=== PATIENT | male | born 1970 | race Caucasian/White ===

== ENCOUNTER 2016-12-07 21:26 | Emergency (ER) | payer BC ==
[~2016-12-07] VITALS: Ht 170.2 cm; Wt 79.1 kg
[2016-12-07 21:29] VITALS: Ht 170.2 cm; Wt 79.1 kg
[2016-12-07] MEDS ORDERED: IPRATROPIUM (NEB) 0.5 MG/2.5 ML AMP INH STA (21:41)
[2016-12-07] MEDS ORDERED: FAMOTIDINE 20 MG TAB PO STA (21:41)
[2016-12-07] MEDS ORDERED: DIPHENHYDRAMINE 50 MG INJ IV STA (21:41)
[2016-12-07] MEDS ORDERED: EPINEPHrine 1 MG INJ IM STA (21:41)
[2016-12-07] MEDS ORDERED: METHYLPREDNISOLONE 125 MG INJ IV STA (21:41)
[2016-12-07] MEDS ORDERED: ALBUTEROL 0.083% (NEB) 2.5 MG/3 ML AMP INH STA (21:41)
[2016-12-07] MEDS ORDERED: SOD CHLORIDE 0.9% 1,000 ML IV ONE (22:00)
--- NOTE | 2016-12-07 22:33 | RADRPT ---
PROCEDURE: XR Chest. CLINICAL INDICATION: Anaphylactic reaction. TECHNIQUE: Single frontal view of the chest. COMPARISON: None. FINDINGS: The cardiomediastinal silhouette is within normal limits. The lungs are clear. No signs of pleural f luid or pneumothorax are seen. The osseous structures and soft tissues are unremarkable. IMPRESSION: No evidence for active cardiopulmonary disease. RPTAT: [facility] Physician Kristin Date Time Electronically viewed and signed by Angelina Guadarrama Physician on 12/07/2016 22:32 RS/
--- NOTE | 2016-12-07 23:47 | ERA ---
ER Documentation Chief Complaint Date/Time DATE: 12/07/16 TIME: 23:38 Chief Complaint ate shrimp & is having SOB [facility] now HPI This is a 46-year-old male with no significant past medical history but a family history of anaphylaxis related to shellfish in his brother who is presenting with concerns of an anaphylactic reaction today. The patient was eating shrimp this evening when he suddenly developed wheezing, feeling that he cannot breathe and shortness of breath with feeling that his throat was closing on him. He felt like his lips were swelling as well. He did not develop a rash. ROS All systems reviewed and are negative except as per history of present illness. Allergies Allergies: Coded Allergies: No Known Allergy (Unverified , 12/07/16) PMhx/Soc Medical and Surgical Hx: pt denies Medical Hx, pt denies Surgical Hx Smoking Status: Never smoker Physical Exam Vitals Vital Signs Date Time Temp Pulse Resp B/P Pulse Ox O2 Delivery O2 Flow Rate FiO2 12/07/16 23:00 99.0 91 18 123/75 99 Room Air 12/07/16 21:55 Rebreather 12/07/16 21:45 76 20 100 Non Rebreather Mask 15.0 100 12/07/16 21:29 99.0 88 24 180/92 90 Physical Exam Const: Mild distress Head: Atraumatic Eyes: Normal Conjunctiva ENT: Normal External Ears, Nose and Mouth, oral airway patent. Oropharynx without erythema or edema or asymmetry. Neck: Full range of motion. ~ No meningismus. Resp: Clear to auscultation bilaterally, but decreased breath sounds symmetrically, no wheezing, rhonchi or rales Cardio: Regular rate and rhythm, no murmurs Abd: Soft, non tender, non distended. Normal bowel sounds Skin: No petechiae or rashes Back: No midline or flank tenderness Ext: No cyanosis, or edema Neur: Awake and alert, strength and sensation intact Psych: Normal Mood and Affect Results 24 hrs Current Medications Medications (Trade) Dose Ordered Sig/Felix Route PRN Reason Start Time Stop Time Status Last Admin Dose Admin Diphenhydramine HCl (Benadryl) 50 mg ONCE STAT IV 12/07/16 21:41 12/07/16 21:44 DC 12/07/16 21:57 Epinephrine (EPINEPHrine) 0.3 mg ONCE STAT IM 12/07/16 21:41 12/07/16 21:44 DC 12/07/16 21:51 Famotidine (Pepcid) 20 mg ONCE STAT PO 12/07/16 21:41 12/07/16 21:44 DC 12/07/16 21:54 Methylprednisolone Sodium Succinate (Solu-Medrol) 125 mg ONCE STAT IV 12/07/16 21:41 12/07/16 21:44 DC 12/07/16 21:57 Albuterol (Proventil 0.083% (Neb)) 5 mg ONCE STAT INH 12/07/16 21:41 12/07/16 21:44 DC 12/07/16 22:00 Ipratropium [place] 1.5 mg 1.5 mg ONCE STAT INH 12/07/16 21:41 12/07/16 21:44 DC 12/07/16 21:59 Sodium Chloride (NS) 1,000 ml @ 1,000 mls/hr Q1H ONCE IV 12/07/16 22:00 12/07/16 22:59 DC 12/07/16 22:03 Procedures/MDM The patient presents with concerns of acute anaphylaxis. The patient was started on Zanaflex protocol. He was given 0.3 mg of 1-1000 IM epinephrine. He was given 50 mg of Benadryl IV, 20 mg of Pepcid IV, 125 mg of Solu-Medrol IV and 1 L of IV fluids. He was also given nebulized treatments of albuterol and ipratropium. The patient's symptoms quickly resolved. He was monitored in the emergency department for 2 hours without recurrence of his symptoms. Shared decision making was made to discuss whether or not he should be admitted. He felt very well and remains so even after being taken off nebulized treatments. He did not want to remain in the hospital, and he understood the risks and benefits associated with possible anaphylactic reactions. The patient will be given a prescription for steroids, Pepcid, Benadryl as well as an epinephrine pen. The patient's brother does have an EpiPen available in case he needs it. He will follow-up with his primary care doctor in 1-2 days. He will be given precautions with which to return to the emergency department. The patient was educated on the need to refrain from eating shellfish ever again. Departure Diagnosis: Primary Impression: Anaphylaxis Qualified Code: T78.2XXA - Anaphylaxis, initial encounter Condition: Stable Patient Instructions: Anaphylaxis, General Additional Instructions: Please return to the emergency department for any recurrence of symptoms. Please take all medicines as prescribed. Please follow-up with your doctor in 1-2 days. Thank you for for coming to [facility] for your care today. Please ask your nurse or provider if you have questions about your care today and do not leave until all your questions have been answered. Please use any medications given as directed and follow-up with your doctor (or the doctor you were referred to) in the next 2-3 days. If you do not have a primary care doctor you may follow up at the [facility] (listed below). You may also use motrin and tylenol as needed for fever and/or pain unless instructed otherwise by your provider or nurse. Indications for more urgent follow-up have been discussed, but you may return to the Emergency Department at ANY time for any worrisome or worsening symptoms. If you have abdominal pain, please know that no test or exam you received is perfect and you should follow up within 8 hours for continued pain. If you had any imaging studies today, such as an X-Ray or CT Scan, these studies will be reviewed later by a radiologist. You will be called if there are important findings that were not identified today, so make sure the contact information you provided at registration is correct. If you received any narcotic pain control medicine today, such as Vicodin, Morphine or Dilaudid, your coordination and judgment may be affected for a number of hours. Please do not drive or operate heavy machinery, and you may want someone to assist you at home. If you were given a prescription for narcotic medication, be aware that it is very addictive- use sparingly and only if necessary. ELLIOT MIMS MD Dec 07, 2016 23:47
[2016-12-07] MEDS ORDERED: FAMO-96 PO (23:50)
[2016-12-07] MEDS ORDERED: PRED20TA PO (23:50)
[2016-12-07] MEDS ORDERED: DIPH25CA6 PO (23:50)
[2016-12-07] MEDS ORDERED: EPIN0.3P4 IM (23:50)
[2016-12-07 23:56] VITALS: BP 121/72; PULSE 89; RESP 16; TEMP 98.7
== END 2016-12-07 23:56 | disposition home or self-care (01) ==
LOC: E/R 21:26
DX: T78.2XXA Anaphylactic shock, unspecified, initial encounter (principal)
CPT/HCPCS: 71010; 94664; 96372; 96374; 96375; 99284; J0171; J1200; J2930; J7030